=== PATIENT | female | born 1985 | race Caucasian/White ===

== ENCOUNTER → 2019-09-10 | Outpatient (CLI) | payer BC ==
[~2019-09-10] MED LIST: MOTRIN 600600 MG/TAB PO; NO HOME MEDICATIONS; NORCO 325 MG-51 TAB PO; PEPCID AC20 MG PO; PERCOCET 325 MG1 TA2 PO; PRENATAL1 TA7 PO; PRILOSEC 20MG20 MG PO; SENOKOT S 50 MG1 TAB PO; ZANTAC 150MG T150 MG PO
== END ==
LOC: COL.RAD 14:30
DX: R10.9 Unspecified abdominal pain (principal); Z97.5 Presence of (intrauterine) contraceptive device

== ENCOUNTER 2020-12-18 23:54 | Emergency (ER) | payer BC ==
[~2020-12-18] VITALS: Ht 165.1 cm; Wt 52.3 kg
[2020-12-19 00:01] VITALS: TEMP 98.8
[2020-12-19 00:57] LABS: COLLECTION METHOD CLEAN CATCH
[2020-12-19 01:03] LABS: MUCOUS Present /lpf; PH 7 (5-8); SQUAMOUS EPITHELIAL 0-2 /hpf; URINE APPEARANCE Clear; URINE BACTERIA None Seen /hpf; URINE BILIRUBIN Negative (NEGATIVE); URINE BLOOD 1+ (NEGATIVE); URINE COLOR Yellow; URINE GLUCOSE Negative (NEGATIVE); URINE KETONE Negative (NEGATIVE); URINE LEUKOCYTE ESTERASE Negative (NEGATIVE); URINE NITRATE Negative (NEGATIVE); URINE PROTEIN(semi-quant) Negative (NEGATIVE); URINE RBC 0-2 /hpf; URINE UROBILINOGEN Negative (NEGATIVE)
[2020-12-19] MEDS ORDERED: MOTRIN 400400 MG/TAB PO (02:29)
[2020-12-19 02:46] VITALS: BP 105/70; PULSE 88
== END 2020-12-19 02:51 | disposition home or self-care (01) ==
LOC: COL.ER 23:54
PROVIDERS: Emergency Medicine
DX: R10.2 Pelvic and perineal pain (principal); Z32.02 Encounter for pregnancy test, result negative; Z88.0 Allergy status to penicillin
CPT/HCPCS: J1885; J2270; J3010